=== PATIENT | female | born 1940 | race Caucasian/White ===

== ENCOUNTER 2018-08-29 15:40 | Outpatient (REF) | payer MEDICARE, SELFPAY ==
[2018-08-29 22:57] LABS: ALT 19 U/L (12-78); AST 20 U/L (15-37); Albumin 4.2 g/dL (3.4-5.0); Alkaline Phosphatase 83 U/L (46-116); BUN 17 mg/dL (7-18); Bilirubin, Total 0.8 mg/dL (0.2-1.0); CREATININE 0.83 mg/dL (0.55-1.02); Calcium 9.5 mg/dL (8.5-10.1); Chloride 102 mmol/L (98-107); Cholesterol 328 mg/dL (50-200); Glucose 80 mg/dL (70-100); HDL Cholesterol 96 mg/dL (40-60); LDL CHOLESTEROL 195 mg/dL (<100); Potassium 4.4 mmol/L (3.5-5.1); Sodium 142 mmol/L (136-145); Triglyceride 105 mg/dL (30-150)
== END 2018-08-29 16:00 ==
LOC: NCHCN 15:40
PROVIDERS: PCP Family Medicine; Visit Provider Family Medicine
DX: R74.0 Nonspecific elevation of levels of transaminase and lactic acid dehydrogenase [LDH] (principal)
CPT/HCPCS: 80053; 80061; 83721

== ENCOUNTER 2021-01-06 15:45 | Outpatient (REF) | payer MEDICARE, SELFPAY ==
[2021-01-06 22:06] LABS: ALT 24 U/L (14-59); Calculated LDL 96 mg/dL (<100); Cholesterol 202 mg/dL (<200); HDL Cholesterol 85 mg/dL (40-60); TSH 1.69 uIU/mL (0.36-3.74); Triglyceride 106 mg/dL (<150)
== END 2021-01-06 15:46 | disposition home or self-care (01) ==
LOC: NCHCN 15:45
PROVIDERS: PCP Family Medicine; Visit Provider Family Medicine
DX: Z13.220 Encounter for screening for lipoid disorders (principal); E78.49 Other hyperlipidemia; E05.90 Thyrotoxicosis, unspecified without thyrotoxic crisis or storm
CPT/HCPCS: 80061; 84443; 84460

== ENCOUNTER 2021-01-07 14:37 | Outpatient (REF) | payer MEDICARE, SELFPAY ==
--- NOTE | 2021-01-07 09:45 | SKI_PTH ---
PATIENT: Xiomara Curtis LOC: [facility] U#:[id number] AGE/SX: 80/F ROOM: RE01/07/[address]: Macie Mccauley : 1940 BED: DIS: 01/07/2021 SPEC #: [id number] RECD: 01/07/21 16:44 STATUS: ELADIO CHAPARRO #: [id number] RANDY: 01/07/21 09:[address]: Macie Mccauley DEPT: Surgical Specimen RECD BY: Soni Trujillo Tissues: 1 - SKIN BIOPSY(SHAVE/PUNCH) Procedures: SKIN LEVEL 4 Comments: [id number]
== END 2021-01-07 14:38 | disposition home or self-care (01) ==
LOC: NCHCN 14:37
PROVIDERS: PCP Family Medicine; Visit Provider Family Medicine
DX: L57.0 Actinic keratosis (principal)
CPT/HCPCS: 88305

== ENCOUNTER 2021-12-23 19:35 | Outpatient (REF) | payer MEDICARE, SELFPAY ==
[2021-12-24 15:22] LABS: COVID-19 RT-PCR UVMMC Result Negative (Negative)
== END 2021-12-23 19:36 | disposition home or self-care (01) ==
LOC: NCHCN 19:35
PROVIDERS: PCP Family Medicine; Visit Provider Registered Nurse
DX: Z20.822 Contact with and (suspected) exposure to COVID-19 (principal); R11.0 Nausea
CPT/HCPCS: U0003

== ENCOUNTER 2023-03-07 11:54 | Outpatient (REF) | payer MEDICARE, SELFPAY ==
[2023-03-07 16:05] LABS: HGB 14.1 g/dL (11.2-15.7); MCH 30.6 pg (27.0-33.0); MCHC 32.8 % (32.0-36.0); MCV 93 fL (80-95); MPV 9.6 fL (8.0-11.0); Platelet Count 281 10^3/uL (130-400); RBC 4.61 10^6/uL (3.93-5.22); RDW 12.4 % (11.7-14.6); RDW-SD 42.4 fL; WBC 7.24 10^3/uL (4.4-10.8)
[2023-03-07 16:08] LABS: ESR 6 mm/hr (0-30)
[2023-03-07 16:23] LABS: Anion Gap 7.2 mmol/L (3-11); BUN 14 mg/dL (7-18); CO2 26.8 mmol/L (21.0-32.0); CREATININE 0.9 mg/dL (0.55-1.02); Calcium 9.8 mg/dL (8.5-10.1); Chloride 104 mmol/L (98-107); Estimated GFR 64.63 (mL/min/1.73m2); Glucose 98 mg/dL (74-106); Potassium 4.8 mmol/L (3.5-5.1); Sodium 138 mmol/L (136-145); Uric Acid 4.6 mg/dL (2.6-6.0)
== END 2023-03-07 11:55 | disposition home or self-care (01) ==
LOC: NCHCN 11:54
PROVIDERS: PCP Family Medicine; Visit Provider Family Medicine
DX: Z13.828 Encounter for screening for other musculoskeletal disorder (principal)
CPT/HCPCS: 80048; 85027; 85652; 84550

== ENCOUNTER 2024-12-16 17:05 | Outpatient (REF) | payer MEDICARE, SELFPAY ==
[2024-12-16 21:46] LABS: HCT 37.4 % (36.0-46.0); MCH 29.4 pg (27.0-33.0); MCHC 32.1 % (32.0-36.0); MCV 92 fL (80-95); MPV 9.4 fL (8.0-11.0); Platelet Count 387 10^3/uL (130-400); RBC 4.08 10^6/uL (3.93-5.22); RDW-SD 43.2 fL; WBC 7.28 10^3/uL (4.4-10.8)
[2024-12-16 21:55] LABS: Anion Gap 6.8 mmol/L (3-11); BUN 16 mg/dL (7-18); CO2 27.2 mmol/L (21.0-32.0); CREATININE 0.9 mg/dL (0.55-1.02); Calcium 9.4 mg/dL (8.5-10.1); Chloride 104 mmol/L (98-107); Estimated GFR 63.83 (mL/min/1.73m2); Glucose 110 mg/dL (74-106); Potassium 4.1 mmol/L (3.5-5.1); Sodium 138 mmol/L (136-145)
== END 2024-12-16 17:06 | disposition home or self-care (01) ==
LOC: NCHCN 17:05
PROVIDERS: PCP Family Medicine; Visit Provider Family Medicine
DX: R53.81 Other malaise (principal)
CPT/HCPCS: 80048; 85027